=== PATIENT | female | born 1960 | race Caucasian/White ===

== ENCOUNTER 2022-09-03 19:04 | Emergency (ER) | payer MEDICAID ==
[~2022-09-03] VITALS: Ht 165.1 cm; Wt 66.0 kg
[~2022-09-03 19:04] MED LIST: BENZ1TAB70 PO; CHOL100018 PO; CYAN500T56 PO; MIRT-89 PO; RISP3TAB35 PO
[2022-09-03] MEDS ORDERED: OLAN5TAB52 PO (21:32)
[2022-09-03] MEDS ORDERED: LITH300C3 PO (21:32)
[2022-09-03] MEDS ORDERED: ASPI-1450 PO (21:32)
[2022-09-03] MEDS ORDERED: PANT-31 PO (21:32)
[2022-09-03] MEDS ORDERED: ATOR20TA86 PO (21:32)
[2022-09-03 22:49] LABS: COVID AG,FIA SOURCE NASOPHARYNGEAL
[2022-09-03 22:51] LABS: BASOPHILS % (AUTO) 0.4 % (0.0-2.0); EOSINOPHILS % (AUTO) 2.9 % (1.0-6.0); HEMATOCRIT 37.7 % (36-46); HEMOGLOBIN 12.4 g/dL (12.0-16.0); LYMPHOCYTES # (AUTO) 1.7 K/uL (1.0-4.8); LYMPHOCYTES % (AUTO) 28.8 % (22.0-44.0); MEAN CORPUSCULAR VOLUME 94 fL (80-100); MONOCYTES # (AUTO) 0.4 K/uL (0.1-1.0); MONOCYTES % (AUTO) 7.5 % (2.0-9.0); NEUTROPHILS # (AUTO) 3.5 K/uL (1.8-7.7); NEUTROPHILS % (AUTO) 60.4 % (40.0-70.0); PLATELET COUNT (AUTO) 211 K/uL (150-450); RED BLOOD CELL COUNT(AUTO) 4.01 MIL/uL (4.00-5.20); RED CELL DISTRIBUTION WIDTH 12.5 % (11.5-14.5)
[2022-09-03 23:00] LABS: AMPHET/METH SCREEN,URINE NEGATIVE (NEGATIVE); BARBITURATE SCREEN, URINE NEGATIVE (NEGATIVE); BENZODIAZEPINES SCREEN,URINE NEGATIVE (NEGATIVE); CANNABINOID SCREEN,URINE NEGATIVE (NEGATIVE); COCAINE SCREEN,URINE NEGATIVE (NEGATIVE); METHADONE SCREEN, URINE NEGATIVE (NEGATIVE); OPIATE SCREEN,URINE NEGATIVE (NEGATIVE)
[2022-09-03 23:01] LABS: ANION GAP 4 mmol/L (8-16); CALCIUM, TOTAL 9.4 mg/dL (8.8-10.5); CARBON DIOXIDE 31 mmol/L (22-29); CHLORIDE 104 mmol/L (98-107); CREATININE 0.57 mg/dL (0.60-1.30); GLOMERULAR FILTR. RATE CALC > 60 mL/min (>60); GLUCOSE,RANDOM 98 mg/dL (70-110); POTASSIUM 4.1 mmol/L (3.5-5.1); SODIUM SERUM 139 mmol/L (136-145); UREA NITROGEN, BLOOD 13 mg/dL (7-18)
[2022-09-03 23:05] LABS: APPEARANCE,URINE CLEAR (CLEAR); BILIRUBIN,URINE NEGATIVE (NEGATIVE); GLUCOSE, URINE (UA) NEGATIVE (NEGATIVE); KETONES,URINE NEGATIVE (NEGATIVE); LEUKOCYTE ESTERASE ,URINE NEGATIVE (NEGATIVE); NITRATE,URINE NEGATIVE (NEGATIVE); OCCULT BLOOD,URINE NEGATIVE (NEGATIVE); PH,URINE 5.5 (5.0-8.0); PROTEIN,URINE NEGATIVE (NEGATIVE); SPECIFIC GRAVITIY, URINE 1.011 (1.003-1.030); UROBILINOGEN,URINE <=1.0 mg/dL (<=1.0)
[2022-09-03 23:06] LABS: PHENCYCLIDINE SCREEN,URINE NEGATIVE (NEGATIVE)
[2022-09-03 23:09] LABS: ALANINE AMINOTRANSFERASE 16 U/L (12-78); ALBUMIN 3.7 g/dL (3.4-5.0); ALKALINE PHOSPHATASE 98 U/L (46-116); ASPARTATE AMINOTRANSFERASE 11 U/L (15-37); BILIRUBIN,TOTAL 0.3 mg/dL (0.1-1.0); TOTAL PROTEIN, SERUM 7.1 g/dL (6.4-8.2)
[2022-09-04 01:00] VITALS: BP 116/73
[2022-09-04] MEDS ORDERED: BENZ1TAB96 PO (11:06)
[2022-09-04] MEDS ORDERED: CHOL25TA4 PO (11:06)
[2022-09-05 03:06] LABS: HIV 1-2 SCREEN 4TH GEN W/RFLX Non Reactive (Non Reactive)
== END 2022-09-04 01:00 | disposition home or self-care (01) ==
LOC: EMS 19:06
DX: F32.A Depression, unspecified (principal); E11.9 Type 2 diabetes mellitus without complications; F20.9 Schizophrenia, unspecified; Z20.822 Contact with and (suspected) exposure to COVID-19
CPT/HCPCS: 99283; 87426; 80053; 81003; 85025; 36415; 80307; 87389; G0480

== ENCOUNTER 2022-09-04 05:13 | Inpatient (IN) | payer MEDICAID ==
[~2022-09-04] VITALS: Ht 165.1 cm; Wt 62.6 kg
[~2022-09-04 05:13] MED LIST changes: +ASPI-1450 PO; +ATOR20TA86 PO; +LITH300C3 PO; +OLAN5TAB52 PO; +PANT-31 PO
[2022-09-04 05:42] LABS: GLUCOMETER DEV NAME(LOC) ERT.5; GLUCOSE,POINT OF CARE 105 MG/DL (70-110)
[2022-09-04 10:15] LABS: COVID AG,FIA SOURCE NASAL SWAB
[2022-09-04 11:01] VITALS: BP 118/53
[2022-09-04] MEDS ORDERED: BENZ1TAB96 PO (11:06)
[2022-09-04] MEDS ORDERED: CHOL25TA4 PO (11:06)
[2022-09-04 16:36] VITALS: BP 164/74
[2022-09-04] MEDS: ZOLPIDEM TARTRATE 10 MG TABLET PO PRN (21:38)
[2022-09-04] MEDS ORDERED: PETROLATUM,WHITE 28 GM JELLY TP PRN (21:45)
[2022-09-04] MEDS ORDERED: ONDANSETRON HCL 4 MG TABLET PO PRN (21:45)
[2022-09-04] MEDS ORDERED: CloNIDine HCL 0.1 MG TABLET PO PRN (21:45)
[2022-09-04] MEDS ORDERED: BENZOCAINE/MENTHOL LOZENGE PO PRN (21:45)
[2022-09-04] MEDS ORDERED: MAG HYDROX/AL HYDROX/SIMETH ES 30 ML SUSPENSION UDCUP PO PRN (21:45)
[2022-09-04] MEDS ORDERED: LOPERAMIDE HCL 2 MG CAPSULE PO PRN (21:45)
[2022-09-04] MEDS ORDERED: OMEPRAZOLE 20 MG CAPSULE PO PRN (21:45)
[2022-09-04] MEDS ORDERED: ALBUTEROL SULFATE HFA 90 MCG/PUFF 8 GM INHALER IH PRN (21:45)
[2022-09-04] MEDS ORDERED: BACITRACIN 28 GM OINTMENT TP PRN (21:45)
[2022-09-05 07:31] LABS: HEMOGLOBIN A1C 5.2 % (3.8-5.6)
[2022-09-05 07:49] LABS: ALANINE AMINOTRANSFERASE 14 U/L (12-78); ALBUMIN 3.7 g/dL (3.4-5.0); ALKALINE PHOSPHATASE 86 U/L (46-116); ANION GAP 3 mmol/L (8-16); ASPARTATE AMINOTRANSFERASE 16 U/L (15-37); BILIRUBIN,TOTAL 0.3 mg/dL (0.1-1.0); CALCIUM, TOTAL 9.3 mg/dL (8.8-10.5); CARBON DIOXIDE 31 mmol/L (22-29); CHLORIDE 106 mmol/L (98-107); CREATININE 0.63 mg/dL (0.60-1.30); GLOMERULAR FILTR. RATE CALC > 60 mL/min (>60); GLUCOSE,RANDOM 98 mg/dL (70-110); POTASSIUM 4.8 mmol/L (3.5-5.1); SODIUM SERUM 140 mmol/L (136-145); TOTAL PROTEIN, SERUM 7.2 g/dL (6.4-8.2); UREA NITROGEN, BLOOD 14 mg/dL (7-18)
[2022-09-05 08:00] VITALS: BP 141/72
[2022-09-05] MEDS: PANTOPRAZOLE SODIUM 40 MG DR TABLET PO SCH (08:22)
[2022-09-05] MEDS: CHOLECALCIFEROL (VIT D3) 1,000 UNITS [25 MCG] TABLET PO SCH (08:22)
[2022-09-05] MEDS: CYANOCOBALAMIN 500 MCG TABLET PO SCH (08:22)
[2022-09-05] MEDS: ASPIRIN 81 MG CHEWABLE TABLET PO SCH (08:22)
[2022-09-05] MEDS: ATORVASTATIN CALCIUM 20 MG TABLET PO SCH (08:22)
[2022-09-05] MEDS: MAGNESIUM HYDROXIDE SUSPENSION 30 ML UDCUP PO PRN (13:34)
[2022-09-05] MEDS: RisperiDONE 4 MG TABLET PO SCH (16:20)
[2022-09-05] MEDS: BENZTROPINE MESYLATE 1 MG TABLET PO SCH (16:20)
[2022-09-05 16:35] VITALS: BP 132/78
[2022-09-05] MEDS: LITHIUM CARBONATE 600 MG CAPSULE PO SCH (20:46)
[2022-09-05] MEDS: MIRTAZAPINE 15 MG TABLET PO SCH (20:46)
[2022-09-06 08:08] VITALS: BP 107/55
[2022-09-06] MEDS: ASPIRIN 81 MG CHEWABLE TABLET PO SCH (08:56)
[2022-09-06] MEDS: CHOLECALCIFEROL (VIT D3) 1,000 UNITS [25 MCG] TABLET PO SCH (08:57)
[2022-09-06] MEDS: CYANOCOBALAMIN 500 MCG TABLET PO SCH (08:57)
[2022-09-06] MEDS: RisperiDONE 4 MG TABLET PO SCH ×2 (08:57→16:05)
[2022-09-06] MEDS: BENZTROPINE MESYLATE 1 MG TABLET PO SCH ×2 (08:57→16:05)
[2022-09-06] MEDS: ATORVASTATIN CALCIUM 20 MG TABLET PO SCH (08:57)
[2022-09-06] MEDS: PANTOPRAZOLE SODIUM 40 MG DR TABLET PO SCH (08:58)
[2022-09-06 16:20] VITALS: BP 107/71
[2022-09-06 20:15] VITALS: BP 108/65
[2022-09-06] MEDS: MIRTAZAPINE 15 MG TABLET PO SCH (20:18)
[2022-09-06] MEDS: IBUPROFEN 600 MG TABLET PO PRN (20:18)
[2022-09-06] MEDS: LITHIUM CARBONATE 600 MG CAPSULE PO SCH (20:18)
[2022-09-07 08:00] VITALS: BP 132/79
[2022-09-07] MEDS: RisperiDONE 4 MG TABLET PO SCH ×2 (08:50→16:59)
[2022-09-07] MEDS: ATORVASTATIN CALCIUM 20 MG TABLET PO SCH (08:50)
[2022-09-07] MEDS: PANTOPRAZOLE SODIUM 40 MG DR TABLET PO SCH (08:50)
[2022-09-07] MEDS: ASPIRIN 81 MG CHEWABLE TABLET PO SCH (08:50)
[2022-09-07] MEDS: CHOLECALCIFEROL (VIT D3) 1,000 UNITS [25 MCG] TABLET PO SCH (08:50)
[2022-09-07] MEDS: CYANOCOBALAMIN 500 MCG TABLET PO SCH (08:50)
[2022-09-07] MEDS: BENZTROPINE MESYLATE 1 MG TABLET PO SCH ×2 (08:50→16:59)
[2022-09-07] MEDS: MAGNESIUM HYDROXIDE SUSPENSION 30 ML UDCUP PO PRN (13:06)
[2022-09-07 16:37] VITALS: BP 124/60
[2022-09-07] MEDS: LITHIUM CARBONATE 600 MG CAPSULE PO SCH (20:33)
[2022-09-07] MEDS: MIRTAZAPINE 15 MG TABLET PO SCH (20:33)
[2022-09-08] MEDS: RisperiDONE 4 MG TABLET PO SCH ×2 (08:40→16:13)
[2022-09-08] MEDS: CYANOCOBALAMIN 500 MCG TABLET PO SCH (08:40)
[2022-09-08] MEDS: PANTOPRAZOLE SODIUM 40 MG DR TABLET PO SCH (08:40)
[2022-09-08] MEDS: ASPIRIN 81 MG CHEWABLE TABLET PO SCH (08:40)
[2022-09-08] MEDS: ATORVASTATIN CALCIUM 20 MG TABLET PO SCH (08:40)
[2022-09-08] MEDS: BENZTROPINE MESYLATE 1 MG TABLET PO SCH ×2 (08:41→16:13)
[2022-09-08] MEDS: CHOLECALCIFEROL (VIT D3) 1,000 UNITS [25 MCG] TABLET PO SCH (08:41)
[2022-09-08 09:40] VITALS: BP 136/53
[2022-09-08 16:03] VITALS: BP 122/62
[2022-09-08] MEDS: MIRTAZAPINE 15 MG TABLET PO SCH (20:55)
[2022-09-08] MEDS: ZOLPIDEM TARTRATE 10 MG TABLET PO PRN (20:56)
[2022-09-08] MEDS: LITHIUM CARBONATE 600 MG CAPSULE PO SCH (20:56)
[2022-09-09] MEDS: HALOPERIDOL 5 MG TABLET PO PRN (00:50)
[2022-09-09] MEDS: LORazepam 2 MG TABLET PO PRN (00:50)
[2022-09-09 08:26] VITALS: BP 113/76
[2022-09-09] MEDS: ASPIRIN 81 MG CHEWABLE TABLET PO SCH (08:51)
[2022-09-09] MEDS: PANTOPRAZOLE SODIUM 40 MG DR TABLET PO SCH (08:52)
[2022-09-09] MEDS: RisperiDONE 4 MG TABLET PO SCH ×2 (08:52→17:04)
[2022-09-09] MEDS: BENZTROPINE MESYLATE 1 MG TABLET PO SCH ×2 (08:52→17:03)
[2022-09-09] MEDS: CHOLECALCIFEROL (VIT D3) 1,000 UNITS [25 MCG] TABLET PO SCH (08:52)
[2022-09-09] MEDS: DOCUSATE SODIUM 100 MG CAPSULE PO PRN (08:52)
[2022-09-09] MEDS: ATORVASTATIN CALCIUM 20 MG TABLET PO SCH (08:52)
[2022-09-09] MEDS: CYANOCOBALAMIN 500 MCG TABLET PO SCH (09:00)
[2022-09-09 16:00] VITALS: BP 107/83
[2022-09-09] MEDS: LITHIUM CARBONATE 600 MG CAPSULE PO SCH (20:12)
[2022-09-09] MEDS: MIRTAZAPINE 15 MG TABLET PO SCH (20:13)
[2022-09-10] MEDS: ASPIRIN 81 MG CHEWABLE TABLET PO SCH (08:04)
[2022-09-10] MEDS: BENZTROPINE MESYLATE 1 MG TABLET PO SCH ×2 (08:04→16:18)
[2022-09-10] MEDS: ATORVASTATIN CALCIUM 20 MG TABLET PO SCH (08:04)
[2022-09-10 08:05] VITALS: BP 138/79
[2022-09-10] MEDS: DOCUSATE SODIUM 100 MG CAPSULE PO PRN (08:05)
[2022-09-10] MEDS: PANTOPRAZOLE SODIUM 40 MG DR TABLET PO SCH (08:05)
[2022-09-10] MEDS: CHOLECALCIFEROL (VIT D3) 1,000 UNITS [25 MCG] TABLET PO SCH (08:05)
[2022-09-10] MEDS: RisperiDONE 4 MG TABLET PO SCH ×2 (08:05→16:18)
[2022-09-10] MEDS: CYANOCOBALAMIN 500 MCG TABLET PO SCH (09:00)
[2022-09-10] MEDS: MAGNESIUM HYDROXIDE SUSPENSION 30 ML UDCUP PO PRN (16:18)
[2022-09-10 16:19] VITALS: BP 97/60
[2022-09-10] MEDS: LITHIUM CARBONATE 600 MG CAPSULE PO SCH (20:35)
[2022-09-10] MEDS: MIRTAZAPINE 15 MG TABLET PO SCH (20:35)
[2022-09-11] MEDS: LORazepam 2 MG TABLET PO PRN (05:01)
[2022-09-11 08:00] VITALS: BP_SYST 106; BP_SYST 133; BP_DIAS 54; BP_DIAS 74
[2022-09-11 08:01] LABS: COVID AG,FIA SOURCE NASAL SWAB
[2022-09-11] MEDS: RisperiDONE 4 MG TABLET PO SCH ×2 (08:55→16:14)
[2022-09-11] MEDS: CYANOCOBALAMIN 500 MCG TABLET PO SCH (08:55)
[2022-09-11] MEDS: ASPIRIN 81 MG CHEWABLE TABLET PO SCH (08:55)
[2022-09-11] MEDS: PANTOPRAZOLE SODIUM 40 MG DR TABLET PO SCH (08:55)
[2022-09-11] MEDS: BENZTROPINE MESYLATE 1 MG TABLET PO SCH ×2 (08:56→16:14)
[2022-09-11] MEDS: ATORVASTATIN CALCIUM 20 MG TABLET PO SCH (08:56)
[2022-09-11] MEDS: CHOLECALCIFEROL (VIT D3) 1,000 UNITS [25 MCG] TABLET PO SCH (08:56)
[2022-09-11] MEDS: DOCUSATE SODIUM 100 MG CAPSULE PO PRN (14:37)
[2022-09-11 16:00] VITALS: BP 117/57
[2022-09-11] MEDS: MIRTAZAPINE 15 MG TABLET PO SCH (20:41)
[2022-09-11] MEDS: LITHIUM CARBONATE 600 MG CAPSULE PO SCH (20:41)
[2022-09-12] MEDS: HALOPERIDOL 5 MG TABLET PO PRN (04:05)
[2022-09-12] MEDS: ASPIRIN 81 MG CHEWABLE TABLET PO SCH (08:14)
[2022-09-12] MEDS: RisperiDONE 4 MG TABLET PO SCH ×2 (08:14→16:53)
[2022-09-12] MEDS: ATORVASTATIN CALCIUM 20 MG TABLET PO SCH (08:15)
[2022-09-12] MEDS: CYANOCOBALAMIN 500 MCG TABLET PO SCH (08:15)
[2022-09-12] MEDS: PANTOPRAZOLE SODIUM 40 MG DR TABLET PO SCH (08:15)
[2022-09-12] MEDS: CHOLECALCIFEROL (VIT D3) 1,000 UNITS [25 MCG] TABLET PO SCH (08:15)
[2022-09-12] MEDS: BENZTROPINE MESYLATE 1 MG TABLET PO SCH ×2 (08:15→16:53)
[2022-09-12 08:53] VITALS: BP 106/67
[2022-09-12 15:52] VITALS: BP 115/48
[2022-09-12 16:05] VITALS: BP 115/48
[2022-09-12] MEDS: MIRTAZAPINE 15 MG TABLET PO SCH (20:45)
[2022-09-12] MEDS: LITHIUM CARBONATE 600 MG CAPSULE PO SCH (20:45)
[2022-09-12] MEDS: ZOLPIDEM TARTRATE 10 MG TABLET PO PRN (20:45)
[2022-09-13] MEDS: PANTOPRAZOLE SODIUM 40 MG DR TABLET PO SCH (08:00)
[2022-09-13] MEDS: RisperiDONE 4 MG TABLET PO SCH ×2 (08:00→16:16)
[2022-09-13] MEDS: BENZTROPINE MESYLATE 1 MG TABLET PO SCH ×2 (08:01→16:16)
[2022-09-13] MEDS: CHOLECALCIFEROL (VIT D3) 1,000 UNITS [25 MCG] TABLET PO SCH (08:01)
[2022-09-13] MEDS: CYANOCOBALAMIN 500 MCG TABLET PO SCH (08:01)
[2022-09-13] MEDS: ASPIRIN 81 MG CHEWABLE TABLET PO SCH (08:01)
[2022-09-13] MEDS: ATORVASTATIN CALCIUM 20 MG TABLET PO SCH (08:02)
[2022-09-13 09:24] VITALS: BP 121/61
[2022-09-13 16:00] VITALS: BP 123/52
[2022-09-13] MEDS: MIRTAZAPINE 15 MG TABLET PO SCH (20:13)
[2022-09-13] MEDS: LITHIUM CARBONATE 600 MG CAPSULE PO SCH (20:13)
[2022-09-14] MEDS: CHOLECALCIFEROL (VIT D3) 1,000 UNITS [25 MCG] TABLET PO SCH (08:53)
[2022-09-14] MEDS: ATORVASTATIN CALCIUM 20 MG TABLET PO SCH (08:53)
[2022-09-14] MEDS: CYANOCOBALAMIN 500 MCG TABLET PO SCH (08:53)
[2022-09-14] MEDS: BENZTROPINE MESYLATE 1 MG TABLET PO SCH ×2 (08:53→17:20)
[2022-09-14] MEDS: RisperiDONE 4 MG TABLET PO SCH ×2 (08:53→17:20)
[2022-09-14] MEDS: ASPIRIN 81 MG CHEWABLE TABLET PO SCH (08:53)
[2022-09-14] MEDS: PANTOPRAZOLE SODIUM 40 MG DR TABLET PO SCH (08:54)
[2022-09-14 09:01] VITALS: BP 136/59
[2022-09-14 16:06] VITALS: BP 105/78
[2022-09-14] MEDS: MIRTAZAPINE 15 MG TABLET PO SCH (20:52)
[2022-09-14] MEDS: LITHIUM CARBONATE 600 MG CAPSULE PO SCH (20:52)
[2022-09-15] MEDS: ASPIRIN 81 MG CHEWABLE TABLET PO SCH (08:22)
[2022-09-15] MEDS: RisperiDONE 4 MG TABLET PO SCH ×2 (08:22→16:52)
[2022-09-15] MEDS: CYANOCOBALAMIN 500 MCG TABLET PO SCH (08:22)
[2022-09-15] MEDS: ATORVASTATIN CALCIUM 20 MG TABLET PO SCH (08:22)
[2022-09-15] MEDS: BENZTROPINE MESYLATE 1 MG TABLET PO SCH ×2 (08:22→16:52)
[2022-09-15] MEDS: PANTOPRAZOLE SODIUM 40 MG DR TABLET PO SCH (08:23)
[2022-09-15] MEDS: CHOLECALCIFEROL (VIT D3) 1,000 UNITS [25 MCG] TABLET PO SCH (08:23)
[2022-09-15 08:59] VITALS: BP 106/55
[2022-09-15] MEDS: MAGNESIUM HYDROXIDE SUSPENSION 30 ML UDCUP PO PRN (14:13)
[2022-09-15 16:37] VITALS: BP 118/47
[2022-09-15] MEDS: MIRTAZAPINE 15 MG TABLET PO SCH (20:48)
[2022-09-15] MEDS: LITHIUM CARBONATE 600 MG CAPSULE PO SCH (20:48)
[2022-09-16 08:00] VITALS: BP 126/70
[2022-09-16] MEDS: ATORVASTATIN CALCIUM 20 MG TABLET PO SCH (08:15)
[2022-09-16] MEDS: PANTOPRAZOLE SODIUM 40 MG DR TABLET PO SCH (08:16)
[2022-09-16] MEDS: CHOLECALCIFEROL (VIT D3) 1,000 UNITS [25 MCG] TABLET PO SCH (08:16)
[2022-09-16] MEDS: RisperiDONE 4 MG TABLET PO SCH ×2 (08:16→16:05)
[2022-09-16] MEDS: ASPIRIN 81 MG CHEWABLE TABLET PO SCH (08:16)
[2022-09-16] MEDS: CYANOCOBALAMIN 500 MCG TABLET PO SCH (08:16)
[2022-09-16] MEDS: BENZTROPINE MESYLATE 1 MG TABLET PO SCH ×2 (08:16→16:05)
[2022-09-16 16:01] VITALS: BP 107/72
[2022-09-16] MEDS: IBUPROFEN 600 MG TABLET PO PRN (16:05)
[2022-09-16] MEDS: LITHIUM CARBONATE 600 MG CAPSULE PO SCH (20:27)
[2022-09-16] MEDS: MIRTAZAPINE 15 MG TABLET PO SCH (20:27)
[2022-09-17] MEDS: BENZTROPINE MESYLATE 1 MG TABLET PO SCH ×2 (08:18→16:14)
[2022-09-17] MEDS: RisperiDONE 4 MG TABLET PO SCH ×2 (08:19→16:14)
[2022-09-17] MEDS: CYANOCOBALAMIN 500 MCG TABLET PO SCH (08:19)
[2022-09-17] MEDS: ASPIRIN 81 MG CHEWABLE TABLET PO SCH (08:19)
[2022-09-17] MEDS: PANTOPRAZOLE SODIUM 40 MG DR TABLET PO SCH (08:19)
[2022-09-17] MEDS: ATORVASTATIN CALCIUM 20 MG TABLET PO SCH (08:19)
[2022-09-17] MEDS: CHOLECALCIFEROL (VIT D3) 1,000 UNITS [25 MCG] TABLET PO SCH (08:20)
[2022-09-17 16:30] VITALS: BP 109/65
[2022-09-17] MEDS: LITHIUM CARBONATE 600 MG CAPSULE PO SCH (20:08)
[2022-09-17] MEDS: MIRTAZAPINE 15 MG TABLET PO SCH (20:08)
[2022-09-18 06:43] LABS: COVID AG,FIA SOURCE NASAL SWAB
[2022-09-18] MEDS: CYANOCOBALAMIN 500 MCG TABLET PO SCH (08:08)
[2022-09-18] MEDS: CHOLECALCIFEROL (VIT D3) 1,000 UNITS [25 MCG] TABLET PO SCH (08:09)
[2022-09-18] MEDS: ATORVASTATIN CALCIUM 20 MG TABLET PO SCH (08:09)
[2022-09-18] MEDS: RisperiDONE 4 MG TABLET PO SCH ×2 (08:09→16:29)
[2022-09-18] MEDS: ASPIRIN 81 MG CHEWABLE TABLET PO SCH (08:09)
[2022-09-18] MEDS: BENZTROPINE MESYLATE 1 MG TABLET PO SCH ×2 (08:10→16:29)
[2022-09-18] MEDS: PANTOPRAZOLE SODIUM 40 MG DR TABLET PO SCH (08:10)
[2022-09-18 16:00] VITALS: BP 114/72
[2022-09-18] MEDS: MIRTAZAPINE 15 MG TABLET PO SCH (20:33)
[2022-09-18] MEDS: LITHIUM CARBONATE 600 MG CAPSULE PO SCH (20:33)
[2022-09-19] MEDS: CYANOCOBALAMIN 500 MCG TABLET PO SCH (08:17)
[2022-09-19] MEDS: PANTOPRAZOLE SODIUM 40 MG DR TABLET PO SCH (08:17)
[2022-09-19] MEDS: RisperiDONE 4 MG TABLET PO SCH ×2 (08:17→16:26)
[2022-09-19] MEDS: ASPIRIN 81 MG CHEWABLE TABLET PO SCH (08:17)
[2022-09-19] MEDS: CHOLECALCIFEROL (VIT D3) 1,000 UNITS [25 MCG] TABLET PO SCH (08:17)
[2022-09-19] MEDS: ATORVASTATIN CALCIUM 20 MG TABLET PO SCH (08:18)
[2022-09-19] MEDS: BENZTROPINE MESYLATE 1 MG TABLET PO SCH ×2 (08:18→16:26)
[2022-09-19 09:40] VITALS: BP 119/54
[2022-09-19] MEDS: ACETAMINOPHEN 325 MG TABLET PO PRN (09:44)
[2022-09-19 16:38] VITALS: BP 133/68
[2022-09-19] MEDS: MIRTAZAPINE 15 MG TABLET PO SCH (21:20)
[2022-09-19] MEDS: LITHIUM CARBONATE 600 MG CAPSULE PO SCH (21:20)
[2022-09-20 08:00] VITALS: BP 96/59
[2022-09-20] MEDS: CHOLECALCIFEROL (VIT D3) 1,000 UNITS [25 MCG] TABLET PO SCH (08:50)
[2022-09-20] MEDS: ATORVASTATIN CALCIUM 20 MG TABLET PO SCH (08:50)
[2022-09-20] MEDS: ASPIRIN 81 MG CHEWABLE TABLET PO SCH (08:50)
[2022-09-20] MEDS: BENZTROPINE MESYLATE 1 MG TABLET PO SCH ×2 (08:50→16:56)
[2022-09-20] MEDS: CYANOCOBALAMIN 500 MCG TABLET PO SCH (08:51)
[2022-09-20] MEDS: PANTOPRAZOLE SODIUM 40 MG DR TABLET PO SCH (08:51)
[2022-09-20] MEDS: RisperiDONE 4 MG TABLET PO SCH ×2 (08:51→16:57)
[2022-09-20 15:10] VITALS: BP 106/58
[2022-09-20] MEDS: ACETAMINOPHEN 325 MG TABLET PO PRN (15:10)
[2022-09-20 16:10] VITALS: BP 112/64
[2022-09-20 16:18] VITALS: BP 105/48
[2022-09-20] MEDS: MIRTAZAPINE 15 MG TABLET PO SCH (21:00)
[2022-09-20] MEDS: LITHIUM CARBONATE 600 MG CAPSULE PO SCH (21:00)
[2022-09-21] MEDS: ZOLPIDEM TARTRATE 10 MG TABLET PO PRN (02:04)
[2022-09-21] MEDS: BENZTROPINE MESYLATE 1 MG TABLET PO SCH ×2 (08:08→16:53)
[2022-09-21] MEDS: PANTOPRAZOLE SODIUM 40 MG DR TABLET PO SCH (08:08)
[2022-09-21] MEDS: RisperiDONE 4 MG TABLET PO SCH ×2 (08:08→16:53)
[2022-09-21] MEDS: CHOLECALCIFEROL (VIT D3) 1,000 UNITS [25 MCG] TABLET PO SCH (08:08)
[2022-09-21] MEDS: CYANOCOBALAMIN 500 MCG TABLET PO SCH (08:08)
[2022-09-21] MEDS: ASPIRIN 81 MG CHEWABLE TABLET PO SCH (08:09)
[2022-09-21] MEDS: ATORVASTATIN CALCIUM 20 MG TABLET PO SCH (08:11)
[2022-09-21 08:31] VITALS: BP 108/80
[2022-09-21] MEDS: ACETAMINOPHEN 325 MG TABLET PO PRN (09:22)
[2022-09-21 16:51] VITALS: BP 102/69
[2022-09-21] MEDS: MIRTAZAPINE 15 MG TABLET PO SCH (20:13)
[2022-09-21] MEDS: LITHIUM CARBONATE 600 MG CAPSULE PO SCH (20:13)
[2022-09-22 08:00] VITALS: BP 113/45
[2022-09-22] MEDS: ASPIRIN 81 MG CHEWABLE TABLET PO SCH (08:10)
[2022-09-22] MEDS: PANTOPRAZOLE SODIUM 40 MG DR TABLET PO SCH (08:10)
[2022-09-22] MEDS: ATORVASTATIN CALCIUM 20 MG TABLET PO SCH (08:10)
[2022-09-22] MEDS: BENZTROPINE MESYLATE 1 MG TABLET PO SCH ×2 (08:10→17:19)
[2022-09-22] MEDS: RisperiDONE 4 MG TABLET PO SCH ×2 (08:11→17:19)
[2022-09-22] MEDS: CYANOCOBALAMIN 500 MCG TABLET PO SCH (08:11)
[2022-09-22 13:12] VITALS: BP 115/55
[2022-09-22] MEDS: ACETAMINOPHEN 325 MG TABLET PO PRN (13:12)
[2022-09-22] MEDS: CHOLECALCIFEROL (VIT D3) 1,000 UNITS [25 MCG] TABLET PO SCH (13:31)
[2022-09-22 14:15] VITALS: BP 106/49
[2022-09-22 16:22] VITALS: BP 114/63
[2022-09-22] MEDS: LITHIUM CARBONATE 600 MG CAPSULE PO SCH (20:51)
[2022-09-22] MEDS: MIRTAZAPINE 15 MG TABLET PO SCH (20:51)
[2022-09-23 08:00] VITALS: BP 105/56
[2022-09-23] MEDS: ASPIRIN 81 MG CHEWABLE TABLET PO SCH (08:29)
[2022-09-23] MEDS: CHOLECALCIFEROL (VIT D3) 1,000 UNITS [25 MCG] TABLET PO SCH (08:29)
[2022-09-23] MEDS: RisperiDONE 4 MG TABLET PO SCH ×2 (08:30→16:29)
[2022-09-23] MEDS: ATORVASTATIN CALCIUM 20 MG TABLET PO SCH (08:30)
[2022-09-23] MEDS: CYANOCOBALAMIN 500 MCG TABLET PO SCH (08:30)
[2022-09-23] MEDS: BENZTROPINE MESYLATE 1 MG TABLET PO SCH ×2 (08:30→16:29)
[2022-09-23] MEDS: PANTOPRAZOLE SODIUM 40 MG DR TABLET PO SCH (08:30)
[2022-09-23 16:00] VITALS: BP 5/59
[2022-09-23] MEDS: MIRTAZAPINE 15 MG TABLET PO SCH (20:53)
[2022-09-23] MEDS: LITHIUM CARBONATE 600 MG CAPSULE PO SCH (20:53)
[2022-09-24] MEDS: ASPIRIN 81 MG CHEWABLE TABLET PO SCH (08:39)
[2022-09-24] MEDS: ATORVASTATIN CALCIUM 20 MG TABLET PO SCH (08:39)
[2022-09-24] MEDS: PANTOPRAZOLE SODIUM 40 MG DR TABLET PO SCH (08:39)
[2022-09-24] MEDS: RisperiDONE 4 MG TABLET PO SCH ×2 (08:40→16:01)
[2022-09-24] MEDS: BENZTROPINE MESYLATE 1 MG TABLET PO SCH ×2 (08:40→16:01)
[2022-09-24] MEDS: CYANOCOBALAMIN 500 MCG TABLET PO SCH (08:40)
[2022-09-24] MEDS: CHOLECALCIFEROL (VIT D3) 1,000 UNITS [25 MCG] TABLET PO SCH (08:41)
[2022-09-24 11:25] VITALS: BP 146/54
[2022-09-24 14:08] VITALS: BP 134/68
[2022-09-24] MEDS: IBUPROFEN 600 MG TABLET PO PRN (14:08)
[2022-09-24 15:08] VITALS: BP 103/62
[2022-09-24 17:08] VITALS: BP 103/50
[2022-09-24] MEDS: MIRTAZAPINE 15 MG TABLET PO SCH (20:14)
[2022-09-24] MEDS: LITHIUM CARBONATE 600 MG CAPSULE PO SCH (20:14)
[2022-09-25 06:46] LABS: COVID AG,FIA SOURCE NASAL SWAB
[2022-09-25] MEDS: CHOLECALCIFEROL (VIT D3) 1,000 UNITS [25 MCG] TABLET PO SCH (08:35)
[2022-09-25] MEDS: ASPIRIN 81 MG CHEWABLE TABLET PO SCH (08:35)
[2022-09-25] MEDS: BENZTROPINE MESYLATE 1 MG TABLET PO SCH ×2 (08:35→16:42)
[2022-09-25] MEDS: PANTOPRAZOLE SODIUM 40 MG DR TABLET PO SCH (08:35)
[2022-09-25] MEDS: RisperiDONE 4 MG TABLET PO SCH ×2 (08:35→16:42)
[2022-09-25] MEDS: CYANOCOBALAMIN 500 MCG TABLET PO SCH (08:35)
[2022-09-25] MEDS: ATORVASTATIN CALCIUM 20 MG TABLET PO SCH (08:35)
[2022-09-25 09:10] VITALS: BP 110/57
[2022-09-25 16:19] VITALS: BP 100/69
[2022-09-25] MEDS: MIRTAZAPINE 15 MG TABLET PO SCH (20:31)
[2022-09-25] MEDS: LITHIUM CARBONATE 600 MG CAPSULE PO SCH (20:31)
[2022-09-26] MEDS: ATORVASTATIN CALCIUM 20 MG TABLET PO SCH (08:11)
[2022-09-26] MEDS: BENZTROPINE MESYLATE 1 MG TABLET PO SCH (08:11)
[2022-09-26] MEDS: CYANOCOBALAMIN 500 MCG TABLET PO SCH (08:11)
[2022-09-26] MEDS: PANTOPRAZOLE SODIUM 40 MG DR TABLET PO SCH (08:11)
[2022-09-26] MEDS: ASPIRIN 81 MG CHEWABLE TABLET PO SCH (08:11)
[2022-09-26] MEDS: RisperiDONE 4 MG TABLET PO SCH (08:11)
[2022-09-26] MEDS: CHOLECALCIFEROL (VIT D3) 1,000 UNITS [25 MCG] TABLET PO SCH (08:12)
[2022-09-26 09:35] VITALS: BP 118/76
[2022-09-26] MEDS ORDERED: RISP4TAB73 PO (10:23)
[2022-09-26] MEDS ORDERED: BENZ1TAB96 PO (10:23)
[2022-09-26] MEDS ORDERED: LITH600C5 PO (10:23)
[2022-09-26] MEDS ORDERED: MIRT-89 PO (10:23)
== END 2022-09-26 13:17 | disposition home or self-care (01) | DRG 750 ==
LOC: EMS 05:14 → 3EI 09:53
PROVIDERS: ADMIT Psychiatry & Neurology Psychiatry; ATTEND Psychiatry & Neurology Psychiatry
DX: F20.9 Schizophrenia, unspecified (principal); E11.9 Type 2 diabetes mellitus without complications; F41.9 Anxiety disorder, unspecified; F32.9 Major depressive disorder, single episode, unspecified; G47.00 Insomnia, unspecified; K59.00 Constipation, unspecified; Z20.822 Contact with and (suspected) exposure to COVID-19; E55.9 Vitamin D deficiency, unspecified; E78.5 Hyperlipidemia, unspecified; I10 Essential (primary) hypertension; K21.9 Gastro-esophageal reflux disease without esophagitis; Z79.899 Other long term (current) drug therapy; Z91.14 Patient's other noncompliance with medication regimen
CPT/HCPCS: 80053; 80178; 82962; 83036; 87081; 99285